=== PATIENT | female | born 2005 | race Caucasian/White ===

== ENCOUNTER 2025-07-10 02:48 | Emergency (ER) | payer OTHER ==
[~2025-07-10] VITALS: Ht 167.6 cm; Wt 61.4 kg
[2025-07-10 03:22] LABS: BASOPHILS 0.2 % (0.1-1.2); EOSINOPHILS 0 % (0.7-5.8); LYMPHOCYTES 12.8 % (19.3-51.7); MCH 29.4 PG (25.6-32.2); MCHC 33.4 g/dL (32.2-35.5); MCV 87.9 fL (79.4-94.8); MONOCYTES 4.7 % (4.7-12.5); NEUTROPHILS 81.8 % (34.0-71.1); RBC 4.87 M/uL (3.93-5.22)
[2025-07-10 03:35] LABS: BLOOD/HGB, URINE NEGATIVE (Negative); KETONE, URINE NEGATIVE (Negative); LEUK ESTERASE, URINE NEGATIVE (negative); NITRITE, URINE NEGATIVE (negative)
[2025-07-10 03:44] LABS: AMPHETAMINES, URINE NEGATIVE (NEGATIVE); BARBITURATES, URINE NEGATIVE (NEGATIVE); BENZODIAZEPINE, URINE NEGATIVE (NEGATIVE); CANNABINOID, URINE NEGATIVE (NEGATIVE); COCAINE, URINE NEGATIVE (NEGATIVE); ECSTASY, URINE NEGATIVE (NEGATIVE); FENTANYL, URINE NEGATIVE (NEGATIVE); METHADONE, URINE NEGATIVE (NEGATIVE); OPIATES, URINE NEGATIVE (NEGATIVE); OXYCODONE, URINE NEGATIVE (NEGATIVE); PHENCYCLIDINE, URINE NEGATIVE (NEGATIVE)
[2025-07-10 03:50] LABS: ALCOHOL, MEDICAL 272 ng/dL (<3); ALT (SGPT) 23 U/L (14-59); AST (SGOT) 22 U/L (15-37); GLOMERULAR FILTRATION RATE,EST 116 mL/min (>60); PROTEIN, TOTAL 9.2 g/dL (6.4-8.2); TSH, 3RD GENERATION 0.224 uIU/mL (0.358-3.740); UREA NITROGEN 7 mg/dL (7-18)
[2025-07-10 06:49] VITALS: BP 108/77
== END 2025-07-10 06:52 | disposition home or self-care (01) ==
LOC: ED 02:48
PROVIDERS: Family Medicine
DX: F41.8 Other specified anxiety disorders (principal)
CPT/HCPCS: 36415; 80053; 80307; 81003; 84443; 84703; 85025; 99285; G0480

== ENCOUNTER 2025-08-24 00:18 | Emergency (ER) | payer OTHER ==
[~2025-08-24] VITALS: Ht 167.6 cm; Wt 61.4 kg
--- OUTSIDE RECORDS SUMMARY | 2025-08-24 00:25 | XMS ---
PreManage Notification: JAZMYN BERGER [employer] Operator Events No recent Security Events currently on file CRITERIA MET - Group Notification CARE PROVIDERS -, [facility] Dentist: [place] Current Aubrey PHONE: [phone] PIONEER KANDICE [facility]: [facility] PHONE: [phone] Lindsay has no Care Guidelines for this patient. EJodi VISIT COUNT (12 MO.) Felisa Huston TOTAL 2 NOTE: Visits indicate total known visits. ED/UCC VISIT TRACKING (12 MO.) 08/24/2025 00:19 [facility] TYPE: Emergency COMPLAINT: - VOMITING 07/10/2025 02:50 [facility] [place] TYPE: Emergency COMPLAINT: - MEDICAL CLEARANCE DIAGNOSES: - Other specified anxiety disorders INPATIENT VISIT TRACKING (12 MO.) No inpatient visits to display in this time frame [email or web address]
[2025-08-24 01:35] LABS: BASOPHILS 0.6 % (0.1-1.2); EOSINOPHILS 1.3 % (0.7-5.8); LYMPHOCYTES 23.1 % (19.3-51.7); MCH 29.6 PG (25.6-32.2); MCHC 33.9 g/dL (32.2-35.5); MCV 87.3 fL (79.4-94.8); MONOCYTES 7.3 % (4.7-12.5); NEUTROPHILS 67.4 % (34.0-71.1); RBC 4.33 M/uL (3.93-5.22)
[2025-08-24] MEDS ORDERED: PANTOPRAZOLE SODIUM 40 MG/10 ML VIAL IV ONE (01:45)
[2025-08-24] MEDS ORDERED: LACTATED RINGER'S 1,000 ML IV ONE (01:45)
[2025-08-24 01:55] LABS: INR 0.97 (0.80-1.30); PROTIME 12.2 Sec (11.2-14.2)
[2025-08-24 01:56] LABS: ALT (SGPT) 20.0 U/L (14-59); AST (SGOT) 17.0 U/L (15-37); GLOMERULAR FILTRATION RATE,EST 130.0 mL/min (>60); PROTEIN, TOTAL 7.9 g/dL (6.4-8.2); UREA NITROGEN 7.0 mg/dL (7-18)
[2025-08-24 02:13] LABS: BLOOD/HGB, URINE NEGATIVE (Negative); KETONE, URINE NEGATIVE (Negative); LEUK ESTERASE, URINE TRACE (negative); NITRITE, URINE NEGATIVE (negative)
[2025-08-24 02:22] LABS: EPITHELIAL CELLS, URINE SQUAMOUS 1+ /lpf (0-1+)
[2025-08-24 02:23] LABS: BACTERIA, URINE RARE /hpf (negative); CASTS, URINE NONE SEEN \\lpf; CRYSTALS, URINE NONE SEEN (0-1+); REFLEX CULTURE, URINE No (No)
[2025-08-24] MEDS ORDERED: ONDANSETRON ODT4 MG PO (03:42)
[2025-08-24] MEDS ORDERED: OMEPRAZOLE20 MG PO (03:42)
[2025-08-24] MEDS ORDERED: ONDANSETRON 4 MG HOME.PACK SL ONE (03:45)
[2025-08-24 04:00] VITALS: BP 97/51
== END 2025-08-24 03:58 | disposition home or self-care (01) ==
LOC: ED 00:18
PROVIDERS: Internal Medicine
DX: F10.129 Alcohol abuse with intoxication, unspecified (principal); Y90.8 Blood alcohol level of 240 mg/100 ml or more; K92.0 Hematemesis; R55 Syncope and collapse
CPT/HCPCS: 36415; 74177; 80053; 81001; 83690; 84703; 85025; 85610; 96361; 96374; 96375; 99285-25; A9270; G0480; J2405; J2470; J7121; Q9967